=== PATIENT | female | born 2005 | race Caucasian/White ===

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

== ENCOUNTER → 2024-03-13 14:39 | Outpatient (CLI) | payer BC, SELFPAY ==
--- NOTE | 2024-03-13 14:43 | DI.RAD.S_ITS ---
PROCEDURE: XR CHEST 2V INDICATIONS: BACK PAIN TECHNIQUE: 2 views of the chest were acquired. COMPARISON: None. FINDINGS: Heart, mediastinum and pulmonary vascular: Heart is normal in size and configuration. Mediastinum is unremarkable. Pulmonary vascular is normal. Lungs: Clear Pleural spaces: Normal-no effusions or pneumothorax. Bones and soft tissues: Normal IMPRESSION: Normal chest. Dictated by: Wagner Sharma M.D. on 03/14/2024 at 10:00 Approved by: Wagner Sharma M.D. on 03/14/2024 at 10:00
--- NOTE | 2024-03-13 14:43 | DI.RAD.S_ITS ---
PROCEDURE: XR HIP W PEL IF DONE BILAT 2V INDICATIONS: BACK PAIN TECHNIQUE: AP pelvis and lateral view of the hip acquired. COMPARISON: None. FINDINGS: Bones: There are no osseous abnormalities. SI and hip joints: Normal in width and alignment without arthritic change Soft tissues: No soft tissue swelling, calcification or mass. IUD is in expected location overlying the uterine region of the true pelvis IMPRESSION: Normal pelvis Dictated by: Wagner Sharma M.D. on 03/14/2024 at 9:41 Approved by: Wagner Sharma M.D. on 03/14/2024 at 9:42
--- NOTE | 2024-03-13 14:43 | DI.RAD.S_ITS ---
PROCEDURE: XR THORACIC SPINE 2V INDICATIONS: BACK PAIN TECHNIQUE: Two views of the thoracic spine were acquired. COMPARISON: None. FINDINGS: Thoracic spine curvature and alignment: Normal. Bones: There are no osseous abnormalities. Disc spaces: Normal in height without significant degeneration. Soft tissues: No soft tissue swelling, calcification or mass. IMPRESSION: Normal thoracic spine Dictated by: Wagner Sharma M.D. on 03/14/2024 at 9:49 Approved by: Wagner Sharma M.D. on 03/14/2024 at 9:49
--- NOTE | 2024-03-13 14:43 | DI.RAD.S_ITS ---
PROCEDURE: XR LUMBAR SPINE 2-3V INDICATIONS: BACK PAIN TECHNIQUE: 3 views of the lumbar spine were acquired. COMPARISON: None. FINDINGS: Lumbar spine curvature and alignment: Normal. Bones: There are no osseous abnormalities. Disc spaces: Normal in height without significant degeneration. Intervertebral foramen: Grossly normal in width. Soft tissues: No soft tissue swelling, calcification or mass. IMPRESSION: Normal lumbar spine Dictated by: Wagner Sharma M.D. on 03/14/2024 at 9:50 Approved by: Wagner Sharma M.D. on 03/14/2024 at 9:50
--- NOTE | 2024-03-13 14:44 | DI.RAD.S_ITS ---
PROCEDURE: XR CERVICAL SPINE 2V OR 3V INDICATIONS: BACK PAIN TECHNIQUE: Three-view (s) of the cervical spine were acquired. COMPARISON: None. FINDINGS: Cervical spine curvature and alignment: Normal. Bones: There are no osseous abnormalities. Disc spaces: Normal in height without significant degeneration. Soft tissues: No soft tissue swelling, calcification or mass. IMPRESSION: Normal cervical spine. Dictated by: Wagner Sharma M.D. on 03/14/2024 at 9:26 Approved by: Wagner Sharma M.D. on 03/14/2024 at 9:27
== END ==
LOC: RAD 14:41
PROVIDERS: PCP Family Medicine; Referring Provider Chiropractor; Visit Provider Chiropractor
DX: M99.01 Segmental and somatic dysfunction of cervical region (principal); M99.02 Segmental and somatic dysfunction of thoracic region; M99.03 Segmental and somatic dysfunction of lumbar region; M99.04 Segmental and somatic dysfunction of sacral region
CPT/HCPCS: 71046; 72040; 72070; 72100; 73521